=== PATIENT | male | born 1945 | race Caucasian/White ===

== ENCOUNTER 2017-11-02 08:21 | Inpatient (IN) | payer MEDICAID, MEDICARE, OTHER ==
[~2017-11-02] VITALS: Ht 180.3 cm; Wt 110.3 kg
[~2017-11-02 08:21] MED LIST: ASPI81TA13; BUPR75TA4 PO; FINA5TAB4 OR; FLUO20CA19 OR; LISI10TA6 OR; OMEP20TA44 OR; SIMV80TA73 OR; TAMS0.4C36 OR; TEMAZEPAM PO; [UNRECOGNIZED DRUG - CODE]
[2017-11-02 10:13] LABS: Alanine Aminotransferase 21 U/L (16-61); Albumin 3.1 g/dL (3.4-5.0); Alkaline Phosphatase 59 U/L (45-117); Anion Gap 10 (5-15); Aspartate Aminotransferase 22 U/L (15-37); BUN/Creatinine Ratio 9.2; Bilirubin, Total 0.6 mg/dL (0.2-1.0); Blood Urea Nitrogen 11 mg/dL (7-18); Calcium 8.5 mg/dL (8.5-10.1); Carbon Dioxide 20 mmol/L (21-32); Chloride 108 mmol/L (98-107); GFR African American 77 mL/min; GFR Non-African American 63 mL/min; Glucose 127 mg/dL (74-106); Potassium 4.1 mmol/L (3.5-5.1); Sodium 138 mmol/L (136-145); Total Protein 6.4 g/dL (6.4-8.2)
[2017-11-02 10:18] LABS: Basophils # (auto) 0 uL; Basophils % (auto) 0.1 % (0.0-2.0); Eosinophils # (auto) 0 uL; Eosinophils % (auto) 0.1 % (0.0-7.0); Hematocrit 51.1 % (41.0-53.0); Lymphocytes # (auto) 0.9 uL; Lymphocytes % (auto) 4.9 % (10.0-50.0); Mean Corpuscular Hemoglobin 28.4 pg (28.0-32.0); Mean Corpuscular Hgb Conc. 31.4 g/dL (32.0-36.0); Mean Corpuscular Volume 90.5 fL (80.0-100.0); Monocytes # (auto) 0.6 uL; Monocytes % (auto) 3.2 % (0.0-12.0); Neutrophils # (auto) 16.4 uL; Neutrophils % (auto) 91.7 % (37.0-80.0); Nucleated Red Blood Cells % 0.2 %; Platelet Count (auto) 171 10^3/uL (140-450); Red Blood Cells 5.65 10^6/uL (4.5-5.90); Red Cell Distribution Width 15.8 % (11.8-14.3); White Blood Cell 17.9 10^3/uL (4.4-10.8)
[2017-11-02] MEDS ORDERED: SODIUM CHLORIDE 0.9% 500 ML IVB ONE (10:18)
[2017-11-02] MEDS ORDERED: SODIUM CHLORIDE 0.9% 1,000 ML IV ONE (10:18)
[2017-11-02] MEDS ORDERED: PROMETHAZINE HCL 25 MG/ML 1ML IV PRN (12:45)
[2017-11-02] MEDS ORDERED: DEXTROSE (50%) 50ML SYRG IV PRN (12:45)
[2017-11-02] MEDS ORDERED: cefTRIAXone 1GM/10ml IVPUSH 10 ML IV ONE (12:45)
[2017-11-02] MEDS ORDERED: HYDROcodone-ACET 5/325MG TAB PO PRN (12:45)
[2017-11-02] MEDS ORDERED: NITROGLYCERIN 0.4 MG SL TAB SL PRN (12:45)
[2017-11-02] MEDS ORDERED: TEMAZEPAM 15 MG CAP PO PRN (12:45)
[2017-11-02] MEDS ORDERED: MORPHINE SULF(PF) 0.5MG/ML 10ML VIAL IV PRN (12:45)
[2017-11-02] MEDS ORDERED: HYDROmorphone HCL 2 MG/ML VL IV PRN (12:45)
[2017-11-02] MEDS ORDERED: GASTROGRAFIN 30 ML SOL ONE (12:48)
[2017-11-02] MEDS: SODIUM CHLORIDE 0.9% 1,000 ML IV SCH ×2 (12:56→22:40)
[2017-11-02 15:28] LABS: CRP High Sensitivity 0.56 mg/dL (< 0.3)
[2017-11-02] MEDS ORDERED: IOHEXOL 300 MG/ML 75ml BOTTLE IJ ONE (17:09)
[2017-11-02] MEDS: metroNIDAZOLE 500MG/100ML 100 ML IV SCH (18:00)
[2017-11-02] MEDS: ACCU-CHEK COMFORT CURVE STRIP VI SCH (18:00)
[2017-11-02] MEDS: lamoTRIgine 25 MG TAB PO SCH (22:55)
[2017-11-02] MEDS: ATORVASTATIN 20 MG TAB PO SCH (22:55)
[2017-11-03] VITALS (7 sets, daily range): BP systolic 108–152; BP diastolic 66–80
[2017-11-03] MEDS: metroNIDAZOLE 500MG/100ML 100 ML IV SCH ×4 (00:22→18:21)
[2017-11-03] MEDS: ACCU-CHEK COMFORT CURVE STRIP VI SCH ×4 (00:22→18:00)
[2017-11-03 02:27] LABS: Urine Bacteria NONE SEEN /hpf (None Seen); Urine Blood Negative /uL (Negative); Urine Specific Gravity 1.033 (1.001-1.035); Urine WBC <1 /hpf (0 - 3)
[2017-11-03 02:43] LABS: Alcohol, Urine < 3.0 mg/dL (0-5); Amphetamine Screen, Urine NEGATIVE (NEGATIVE); Barbiturate Scree,Urine NEGATIVE (NEGATIVE); Benzodiazephine Screen, Urine POSITIVE (NEGATIVE); Cannabinoid Screen, Urine NEGATIVE (NEGATIVE); Cocaine Screen, Urine NEGATIVE (NEGATIVE); Opiate Scree,Urine NEGATIVE (NEGATIVE); Phencyclidine Screen, Urine NEGATIVE (NEGATIVE)
[2017-11-03] MEDS: ACETAMINOPHEN 500 MG TAB PO PRN ×2 (05:53→12:48)
[2017-11-03 06:49] LABS: Basophils # (auto) 0 uL; Basophils % (auto) 0.3 % (0.0-2.0); Eosinophils # (auto) 0.1 uL; Eosinophils % (auto) 1.1 % (0.0-7.0); Hematocrit 37.6 % (41.0-53.0); Hemoglobin 12.9 g/dL (13.5-17.5); Lymphocytes # (auto) 1.3 uL; Mean Corpuscular Hemoglobin 28.9 pg (28.0-32.0); Mean Corpuscular Hgb Conc. 34.4 g/dL (32.0-36.0); Monocytes # (auto) 0.5 uL; Neutrophils # (auto) 6.7 uL; Neutrophils % (auto) 77.6 % (37.0-80.0); Platelet Count (auto) 144 10^3/uL (140-450); Red Blood Cells 4.48 10^6/uL (4.5-5.90); Red Cell Distribution Width 14.4 % (11.8-14.3); White Blood Cell 8.7 10^3/uL (4.4-10.8)
[2017-11-03 07:22] LABS: Albumin 3.3 g/dL (3.4-5.0); BUN/Creatinine Ratio 9.4; Bilirubin, Total 0.8 mg/dL (0.2-1.0); Calcium 8.1 mg/dL (8.5-10.1)
[2017-11-03] MEDS: SODIUM CHLORIDE 0.9% 1,000 ML IV SCH ×2 (08:35→18:35)
[2017-11-03] MEDS ORDERED: cefTRIAXone 1GM/10ml IVPUSH 10 ML IV SCH (09:00)
[2017-11-03] MEDS: FINASTERIDE 5 MG TAB PO SCH (09:17)
[2017-11-03] MEDS: PANTOPRAZOLE 40 MG TAB PO SCH ×2 (09:17→10:00)
[2017-11-03] MEDS: ENOXAPARIN SOD 40 MG/0.4 ML SYRINGE SC SCH (09:18)
[2017-11-03] MEDS: ASPirin-EC 81 mg tab PO SCH (10:00)
[2017-11-03] MEDS: FLUoxetine HCL 20 MG CAP PO SCH (10:00)
[2017-11-03] MEDS: buPROPion HCL 75 MG TAB PO SCH (10:00)
[2017-11-03] MEDS: lamoTRIgine 25 MG TAB PO SCH ×2 (10:00→21:19)
[2017-11-03] MEDS ORDERED: DOCU100T15 PO (10:09)
[2017-11-03] MEDS ORDERED: ALPR1TAB2 PO (10:12)
[2017-11-03] MEDS ORDERED: METO25TA5 PO (10:12)
[2017-11-03] MEDS: LORazepam 0.5 MG TAB PO PRN ×2 (14:00→21:19)
[2017-11-03] MEDS: ATORVASTATIN 20 MG TAB PO SCH (21:19)
[2017-11-04] MEDS: SODIUM CHLORIDE 0.9% 1,000 ML IV SCH ×2 (04:51→14:35)
[2017-11-04] MEDS: metroNIDAZOLE 500MG/100ML 100 ML IV SCH ×3 (05:30→12:00)
[2017-11-04] MEDS: ACCU-CHEK COMFORT CURVE STRIP VI SCH ×3 (05:30→12:00)
[2017-11-04 05:56] VITALS: BP 120/75
[2017-11-04 08:30] VITALS: BP 140/79
[2017-11-04 08:48] VITALS: BP 140/79
[2017-11-04] MEDS: PANTOPRAZOLE 40 MG TAB PO SCH ×2 (09:17→09:22)
[2017-11-04] MEDS: FINASTERIDE 5 MG TAB PO SCH (09:18)
[2017-11-04] MEDS: ENOXAPARIN SOD 40 MG/0.4 ML SYRINGE SC SCH (09:18)
[2017-11-04] MEDS: ASPirin-EC 81 mg tab PO SCH (09:21)
[2017-11-04] MEDS: lamoTRIgine 25 MG TAB PO SCH (09:21)
[2017-11-04] MEDS: buPROPion HCL 75 MG TAB PO SCH (09:22)
[2017-11-04] MEDS: FLUoxetine HCL 20 MG CAP PO SCH (09:22)
[2017-11-04 13:00] VITALS: BP 161/87
[2017-11-04 15:22] VITALS: BP 160/79
[2017-11-04 16:45] VITALS: BP 167/105
== END 2017-11-04 16:50 | disposition home or self-care (01) | DRG 872 ==
LOC: ER 08:21 → EDBD 08:21 → OVERFLOW 08:22 → TELE-CENTR 23:46
PROVIDERS: ADMIT Internal Medicine; ATTEND Internal Medicine Pulmonary Disease
DX: A41.9 Sepsis, unspecified organism (principal); E44.1 Mild protein-calorie malnutrition; K52.9 Noninfective gastroenteritis and colitis, unspecified; K46.9 Unspecified abdominal hernia without obstruction or gangrene; E86.1 Hypovolemia; I95.9 Hypotension, unspecified; E66.01 Morbid (severe) obesity due to excess calories; E78.5 Hyperlipidemia, unspecified; I10 Essential (primary) hypertension; I25.10 Atherosclerotic heart disease of native coronary artery without angina pectoris; K29.80 Duodenitis without bleeding; I48.91 Unspecified atrial fibrillation; I71.4 Abdominal aortic aneurysm, without rupture; K59.00 Constipation, unspecified; K43.9 Ventral hernia without obstruction or gangrene; R73.9 Hyperglycemia, unspecified; D17.9 Benign lipomatous neoplasm, unspecified; F32.9 Major depressive disorder, single episode, unspecified; F41.9 Anxiety disorder, unspecified; E86.0 Dehydration; K57.30 Diverticulosis of large intestine without perforation or abscess without bleeding; D72.829 Elevated white blood cell count, unspecified; K21.9 Gastro-esophageal reflux disease without esophagitis; N40.0 Benign prostatic hyperplasia without lower urinary tract symptoms; Z95.0 Presence of cardiac pacemaker; Z88.5 Allergy status to narcotic agent; Z68.33 Body mass index [BMI] 33.0-33.9, adult; Z79.899 Other long term (current) drug therapy; Z79.4 Long term (current) use of insulin; Z90.49 Acquired absence of other specified parts of digestive tract
CPT/HCPCS: 36415; 71045; 74176; 74177; 80053; 80307; 81001; 82150; 82270; 82378; 82550; 82962; 83036; 83690; 83735; 84443; 84484; 85025; 85379; 85652; 86141; 87040; 87086; 87177; 87493; 93005; 93306; 93970; 94761; 96361; 96374; J3490; Q9967